=== PATIENT | male | born 1980 | race American Indian/Alaskan Native ===

== ENCOUNTER 2017-09-20 13:51 | Emergency (ER) | payer SELFPAY ==
[2017-09-20 14:15] VITALS: BMI 38.6
[2017-09-20] MEDS ORDERED: Sodium Chloride 0.9% 1,000 ML IV ONE (14:46)
--- NOTE | 2017-09-20 14:49 | C.PDOC ---
History Of Present Illness 37 y/o male presents to the ED c/o low abdominal pain for weeks . The patient notes having blood in his urine. The patient has been taking Motrin for relief of back and abdominal pain.The patient denies fever, nausea, vomiting, headaches , and dizziness. Time Seen by Provider: 09/20/17 14:23 Chief Complaint (Nursing): Abdominal Pain History Per: Patient History/Exam Limitations: no limitations Onset/Duration Of Symptoms: Days Current Symptoms Are (Timing): Still Present Severity: Mild Associated Symptoms: denies: Fever, Chills, Nausea, Vomiting, Diarrhea, Loss Of Appetite Recent travel outside of the [place]: No Additional History Per: Patient Past Medical History Reviewed: Historical Data, Nursing Documentation, Vital Signs Vital Signs: Last Vital Signs Temp 97.7 F 09/20/17 14:14 Pulse 60 09/20/17 14:14 Resp 20 09/20/17 14:14 BP 127/76 09/20/17 14:14 Pulse Ox 100 09/20/17 16:35 - Medical History PMH: Bronchitis, Pneumonia Surgical History: No Surg Hx Family History: States: No Known Family Hx - Social History Hx Tobacco Use: Yes Hx Alcohol Use: Yes Hx Substance Use: Yes - Immunization History Hx Tetanus Toxoid Vaccination: Yes Hx Influenza Vaccination: No Hx Pneumococcal Vaccination: No Review Of Systems Except As Marked, All Systems Reviewed And Found Negative. Constitutional: Negative for: Fever, Chills, Sweats Cardiovascular: Negative for: Chest Pain Respiratory: Negative for: Cough, Shortness of Breath Gastrointestinal: Positive for: Abdominal Pain (for weeks ). Negative for: Nausea, Vomiting, Diarrhea, Constipation Genitourinary: Positive for: Dysuria, Hematuria. Negative for: Penile Discharge , Penile Pain Skin: Negative for: Rash Physical Exam - Physical Exam Appears: Non-toxic, Other (alert and awake) Skin: Warm, Dry Head: Atraumatic, Normacephalic Eye(s): bilateral: PERRL Oral Mucosa: Moist Neck: Normal Chest: Symmetrical Cardiovascular: Rhythm Regular Respiratory: Normal Breath Sounds, No Rales, No Rhonchi, No Wheezing Gastrointestinal/Abdominal: Soft, Tenderness (suprapubic ), No Guarding, No Rebound Back: No CVA Tenderness Extremity: Normal ROM, Capillary Refill (2<sec.) Neurological/Psych: Oriented x3 Gait: Steady ED Course And Treatment - Laboratory Results Result Diagrams: 09/20/17 14:51 09/20/17 14:51 Lab Interpretation: No Acute Changes O2 Sat by Pulse Oximetry: 100 Pulse Ox Interpretation: Normal - CT Scan/US No standard instances Other Rad Studies (CT/US): Read By Radiologist, Radiology Report Reviewed CT/US Interpretation: FINDINGS: LOWER THORAX: Unremarkable. LIVER: Unremarkable. No gross lesion or ductal dilatation. GALLBLADDER AND BILE DUCTS : Unremarkable. PANCREAS: Unremarkable. No gross lesion or ductal dilatation. SPLEEN: Unremarkable. ADRENALS: Unremarkable. No mass. KIDNEYS AND URETERS: Unremarkable. No hydronephrosis. No solid mass. VASCULATURE: Unremarkable. No aortic aneurysm. BOWEL: The stomach is distended with retained food moderately. No obstruction. No gross mural thickening. Minimal sigmoid diverticular changes are identified without diverticulitis. Moderate fecal loading is seen throughout the large bowel. APPENDIX: Unremarkable. Normal appendix. PERITONEUM: Unremarkable. No free fluid. No free air. LYMPH NODES: Unremarkable. No enlarged lymph nodes. BLADDER: Unremarkable. REPRODUCTIVE: Unremarkable. BONES: No acute fracture. OTHER FINDINGS: None. IMPRESSION: Limited imaging the abdomen due lack of contrast agents. No definitive acute abdominal or pelvic findings. If symptoms persist or worsen follow-up oral intravenous contrast enhanced abdomen and pelvis CT is recommended strongly. Progress Note: Treated with IVF NSS and tordal with relief. On re-evaluation abdomen soft treated with rocephin and zithromax for possible STD. Urine sent to lab for STD and culture. treated with macrobid PO. On re-evaluation abdomen soft non-tender. Discharged in stable condition Reassessment Condition: Improved Medical Decision Making Medical Decision Making: Ct scan, IV fluids , UA , Blood work, and Toradol was administered. Disposition Counseled Patient/Family Regarding: Studies Performed, Diagnosis, Need For Followup, Rx Given - Disposition Referrals: [facility] [Outside] [facility] [Outside] Disposition: HOME/ ROUTINE Disposition Time: 16:35 Condition: STABLE Additional Instructions: follow up with clinic for further evaluation Return to ED if any increase symptoms Prescriptions: Nitrofurantoin Macrocrystals [Macrobid] 1 cap PO BID #14 cap Instructions: Urinary Tract Infection in Men (DC), Dysuria (ED) Forms: [employer] ([employer]) - POA Present On Arrival: None - Clinical Impression Clinical Impression: Abdominal pain, Urinary tract infection - PA / TAX RECORD CLERK / Resident Statement MD/DO has examined the patient and agrees with the treatment plan. - Scribe Statement The provider has reviewed the documentation as recorded by the Dillanibmary grace Solorzano All medical record entries made by the Jackie were at my direction and personally dictated by me. I have reviewed the chart and agree that the record accurately reflects my personal performance of the history, physical exam, medical decision making, and the department course for this patient. I have also personally directed, reviewed, and agree with the discharge instructions and disposition.
[2017-09-20] MEDS ORDERED: Sodium Chloride 0.9% 1,000 ML ONE (14:54)
[2017-09-20 14:58] LABS: BASO # 0.1 K/uL (0.0-0.2); BASO % 0.7 % (0.0-2.0); EOS # 0.1 K/uL (0.0-0.7); HEMATOCRIT 38.9 % (35.0-51.0); LYMPH % 31.3 % (20.0-40.0); MEAN CELL VOLUME 86.1 fL (80.0-94.0); MEAN CORPUSCULAR HEMOGLOBIN 28.7 pg (27.0-31.0); MEAN CORPUSCULAR HGB CONC 33.3 g/dL (33.0-37.0); MONO # 0.7 K/uL (0.0-0.8); MONO % 6.8 % (0.0-10.0); RED CELL DISTRIBUTION WIDTH 13.3 % (11.5-14.5); WHITE BLOOD COUNT 9.6 K/uL (4.8-10.8)
[2017-09-20 15:05] LABS: ALB/GLOB RATIO 1.3 (1.0-2.1); ALKALINE PHOSPHATASE 80 U/L (38-126); ALT/SGPT 41 U/L (21-72); AST/SGOT 45 U/L (17-59); BILIRUBIN,TOTAL 0.9 mg/dL (0.2-1.3); BLOOD UREA NITROGEN 12 mg/dL (9-20); CALCIUM 8.4 mg/dl (8.6-10.4); CARBON DIOXIDE 28 mmol/L (22-30); CHLORIDE 104 mmol/L (98-107); GFR AFRICAN-AMERICAN > 60; GLUCOSE,RANDOM 90 mg/dL (75-110); POTASSIUM 3.7 mmol/L (3.6-5.2); SODIUM 141 mmol/L (132-148); TOTAL PROTEIN 7.5 g/dL (6.3-8.3)
[2017-09-20 15:36] LABS: RBC URINE 4 /hpf (0-3); URINE BACTERIA OCC (<OCC); URINE BILIRUBIN NEGATIVE (NEGATIVE); URINE BLOOD 1+ (NEGATIVE); URINE COLOR Yellow (YELLOW); URINE GLUCOSE (UA) NORMAL (Normal); URINE KETONE NEGATIVE (NEGATIVE); URINE PROTEIN NEGATIVE (NEGATIVE); URINE UROBILINOGEN NORMAL mg/dL (0.2-1.0); WBC URINE 11 /hpf (0-5)
[2017-09-20 15:43] LABS: URINE LEUKOCYTE ESTERASE 1+ Leu/uL (Negative)
--- NOTE | 2017-09-20 16:08 | CT ---
PROCEDURE: CT Abdomen and Pelvis without intravenous contrast HISTORY: Pain COMPARISON: None. TECHNIQUE: Helical CT of the abdomen and pelvis was performed without oral or intravenous contrast as per referring physician request.. Contrast Dose: None Radiation dose: Total exam DLP = 1301.00 mGy-cm. This CT exam was performed using one or more of the following dose reduction techniques: Automated exposure control, adjustment of the mA and/or kV according to patient size, and/or use of iterative reconstruction technique. FINDINGS: LOWER THORAX: Unremarkable. LIVER: Unremarkable. No gross lesion or ductal dilatation. GALLBLADDER AND BILE DUCTS: Unremarkable. PANCREAS: Unremarkable. No gross lesion or ductal dilatation. SPLEEN: Unremarkable. ADRENALS: Unremarkable. No mass. KIDNEYS AND URETERS: Unremarkable. No hydronephrosis. No solid mass. VASCULATURE: Unremarkable. No aortic aneurysm. BOWEL: The stomach is distended with retained food moderately. No obstruction. No gross mural thickening. Minimal sigmoid diverticular changes are identified without diverticulitis. Moderate fecal loading is seen throughout the large bowel. APPENDIX: Unremarkable. Normal appendix. PERITONEUM: Unremarkable. No free fluid. No free air. LYMPH NODES: Unremarkable. No enlarged lymph nodes. BLADDER: Unremarkable. REPRODUCTIVE: Unremarkable. BONES: No acute fracture. OTHER FINDINGS: None. IMPRESSION: Limited imaging the abdomen due lack of contrast agents. No definitive acute abdominal or pelvic findings. If symptoms persist or worsen follow-up oral intravenous contrast enhanced abdomen and pelvis CT is recommended strongly.
[2017-09-20] MEDS ORDERED: cefTRIAXone (Rocephin) 250 mg Inj IM STA (16:25)
[2017-09-20 17:15] VITALS: BP 149/79; PULSE 59; RESP 18; TEMP 98.2; O2SAT 99
== END 2017-09-20 17:15 | disposition home or self-care (01) ==
LOC: C.ER 13:51
DX: N39.0 Urinary tract infection, site not specified (principal); R10.30 Lower abdominal pain, unspecified; Z87.891 Personal history of nicotine dependence
CPT/HCPCS: 74176; 80053; 81001; 85025; 87086; 87491; 87591; 96361; 96372; 96374; 99285; J0696; J1885; J7040

== ENCOUNTER 2018-06-25 19:39 | Inpatient (IN) | payer SELFPAY ==
[2018-06-25 19:39] VITALS: BMI 38.6
[2018-06-25 20:11] VITALS: TEMP 98.6
--- NOTE | 2018-06-25 20:15 | C.PDOC ---
History Of Present Illness 38 year old male presents to the ER with a complaint of left sided chest pain for the past 3 days that has worsened today associated with diaphoresis. Patient describes the pain as a sharp shooting pain that radiates down the left arm and states he feels a tingling sensation to his left hand. He reports taking tramadol yesterday with no relief and took nothing for the past today. Patient admits to recreational marijuana use but denies other substance abuse. Denies SOB, nausea, vomiting, fever, or chills. Time Seen by Provider: 06/25/18 20:15 Chief Complaint (Nursing): Chest Pain History Per: Patient History/Exam Limitations: no limitations Onset/Duration Of Symptoms: Days Current Symptoms Are (Timing): Still Present Quality: Sharp, Other (Shooting) Associated Symptoms: Diaphoresis Modifying Factors: None Exacerbating Factors: None Alleviating Factors: None Recent travel outside of the [place]: No Past Medical History Reviewed: Historical Data, Nursing Documentation, Vital Signs Vital Signs: Last Vital Signs Temp 98.6 F 06/25/18 20:08 Pulse 78 06/26/18 00:15 Resp 18 06/26/18 00:15 BP 126/84 06/26/18 00:15 Pulse Ox 98 06/26/18 00:15 - Medical History PMH: Bronchitis, Pneumonia Family History: States: [place] - Social History Hx Tobacco Use: Yes Hx Alcohol Use: Yes Hx Substance Use: Yes - Immunization History Hx Tetanus Toxoid Vaccination: Yes Hx Influenza Vaccination: No Hx Pneumococcal Vaccination: No Review Of Systems Constitutional: Positive for: Sweats. Negative for: Fever, Chills Cardiovascular: Positive for: Chest Pain. Negative for: Palpitations Respiratory: Negative for: Cough, Shortness of Breath Gastrointestinal: Negative for: Nausea, Vomiting Skin: Negative for: Rash Neurological: Positive for: Other (Tingling sensation to left hand) Physical Exam - Physical Exam Appears: Non-toxic Skin: Normal Color, Warm, Dry, No Rash Head: Atraumatic, Normacephalic Eye(s): bilateral: Normal Inspection Oral Mucosa: Moist Chest: Symmetrical, No Tenderness Cardiovascular: Rhythm Regular Respiratory: Normal Breath Sounds, No Rales, No Rhonchi, No Wheezing Gastrointestinal/Abdominal: Soft, No Tenderness Back: No CVA Tenderness Extremity: Normal ROM (x4) Neurological/Psych: Oriented x3, Normal Speech, Normal Motor, Normal Sensation ED Course And Treatment - Laboratory Results Result Diagrams: 06/25/18 20:26 06/25/18 20:26 O2 Sat by Pulse Oximetry: 99 (Room air) Pulse Ox Interpretation: Normal Medical Decision Making Medical Decision Making: EKG, blood work, and CXR ordered. Pepcid, maalox, and motrin administered. Heart score 4: Story: 2 RF: 1 EK Trop: 0 age: 0 will plan for obs Endorsed to Dr. Ruiz: accepted Seen by medicine team bedside: likely cervical radiculopathy vs strain. Pt notes that he wants to go home. I informed pt of non-complete workup for chest pain with risks including NH, UA, and other deadly diagnoses. Pt notes he understand the risks of and disability and wants to go home. Given pt is of sound mind and with a normal affect and neuro will AMA pt home. Disposition - Disposition Disposition: AGAINST MEDICAL ADVICE Disposition Time: 10:38 Condition: GOOD - Clinical Impression Clinical Impression: Chest pain, Cervical strain - Scribe Statement The provider has reviewed the documentation as recorded by the Scribmary grace Mcdowell All medical record entries made by the Scribe were at my direction and personally dictated by me. I have reviewed the chart and agree that the record accurately reflects my personal performance of the history, physical exam, medical decision making, and the department course for this patient. I have also personally directed, reviewed, and agree with the discharge instructions and disposition.
[2018-06-25 20:31] LABS: BASO % 0.4 % (0.0-2.0); EOS # 0.2 K/uL (0.0-0.7); EOS % 1.6 % (0.0-4.0); LYMPH # 3.4 K/uL (1.0-4.3); LYMPH % 31.7 % (20.0-40.0); MEAN CELL VOLUME 87.9 fL (80.0-94.0); MEAN CORPUSCULAR HEMOGLOBIN 29.2 pg (27.0-31.0); MEAN CORPUSCULAR HGB CONC 33.2 g/dL (33.0-37.0); MEAN PLATELET VOLUME 8.5 fL (7.2-11.7); MONO # 0.7 K/uL (0.0-0.8); MONO % 6.3 % (0.0-10.0); NEUT # 6.4 K/uL (1.8-7.0); NRBC % 0.1 % (0.0-2.0); RBC 4.45 Mil/uL (4.40-5.90); RED CELL DISTRIBUTION WIDTH 13.6 % (11.5-14.5); WHITE BLOOD COUNT 10.7 K/uL (4.8-10.8)
[2018-06-25 20:40] LABS: INR 1.1; PROTHROMBIN TIME 11.5 SECONDS (9.7-12.2)
[2018-06-25 20:44] LABS: ALB/GLOB RATIO 1.3 (1.0-2.1); ALT/SGPT 40 U/L (21-72); AST/SGOT 36 U/L (17-59); BLOOD UREA NITROGEN 12 mg/dL (9-20); CALCIUM 8.9 mg/dl (8.6-10.4); GFR NON-AFRICAN AMERICAN > 60
[2018-06-25] MEDS ORDERED: Aluminum Hydroxide/Magnesium Hydroxide Susp (30 mL) PO ONE (21:15)
[2018-06-25] MEDS ORDERED: Alum-Mag Hydrox-Simethicone Susp (30 mL) ONE (21:21)
[2018-06-26 00:21] VITALS: BP 126/84; PULSE 78; RESP 18
[2018-06-26 01:22] VITALS: O2SAT 99
--- NOTE | 2018-06-26 08:50 | RAD ---
Date of service: 06/25/2018 HISTORY: Chest pain COMPARISON: 10/16/2015. FINDINGS: LUNGS: The lungs are well inflated and clear. PLEURA: No significant pleural effusion identified, no pneumothorax apparent. CARDIOVASCULAR: Normal. OSSEOUS STRUCTURES: No significant abnormalities. VISUALIZED UPPER ABDOMEN: Normal. OTHER FINDINGS: None. IMPRESSION: No active pulmonary disease.
--- NOTE | 2018-06-26 11:03 | CARD ---
APPROVED REPORT Date of service: 06/25/2018 EKG Measurement Heart [id number] CO 156P40 [id number] <Conclusion> Sinus bradycardia Incomplete right bundle branch block Borderline ECG
== END 2018-06-26 00:15 | disposition left against medical advice (07) | DRG 313 ==
LOC: C.ER 19:39 → SUPCPDRO 19:39 → C.9E 22:44 → C.5S 23:19
PROVIDERS: ADMIT Internal Medicine; ATTEND Internal Medicine
DX: R07.9 Chest pain, unspecified (principal); F12.90 Cannabis use, unspecified, uncomplicated; S16.1XXA Strain of muscle, fascia and tendon at neck level, initial encounter; X58.XXXA Exposure to other specified factors, initial encounter; Z87.891 Personal history of nicotine dependence

== ENCOUNTER 2019-01-29 11:07 | Emergency (ER) | payer OTHER ==
[2019-01-29 11:13] VITALS: BMI 36.6
[2019-01-29 11:19] VITALS: BP 122/74; PULSE 60; RESP 18; TEMP 97.9; O2SAT 100
[2019-01-29] MEDS ORDERED: Fluorescein 1 mg Ophthalmic Strip ONE (12:33)
[2019-01-29] MEDS ORDERED: Tetracaine 0.5% Ophth (OR ONLY) ONE (12:33)
--- NOTE | 2019-01-29 12:35 | C.PDOC ---
History Of Present Illness 38-year-old male presents to the ED for evaluation of foreign body sensation in left eye since this morning. Patient states he was in the shower when he felt a sudden onset of sandpaper-like sensation in his left eye. Patient states, "I thought it was an eyelash," and tried to get it out but was unable to. Patient denies blurry vision, contact lens use, eye swelling or pain with eye movement. Time Seen by Provider: 01/29/19 12:09 Chief Complaint (Nursing): Eye Problem History Per: Patient History/Exam Limitations: no limitations Onset/Duration Of Symptoms: Hrs Current Symptoms Are (Timing): Still Present Injury To Eye?: No Associated Symptoms: FB Sensation. denies: Pain, Decreased Vision, Swelling Additional History Per: Patient Past Medical History Reviewed: Historical Data, Nursing Documentation, Vital Signs Vital Signs: Last Vital Signs Temp 97.9 F 01/29/19 11:13 Pulse 60 01/29/19 11:13 Resp 18 01/29/19 11:13 BP 122/74 01/29/19 11:13 Pulse Ox 100 01/29/19 11:13 - Medical History PMH: Bronchitis, Pneumonia Surgical History: No Surg Hx Family History: States: [place] - Social History Hx Tobacco Use: Yes Hx Alcohol Use: Yes Hx Substance Use: No ("marijuana isn't a drug" as per patient) - Immunization History Hx Tetanus Toxoid Vaccination: Yes Hx Influenza Vaccination: No Hx Pneumococcal Vaccination: Yes Review Of Systems Constitutional: Negative for: Weakness Eyes: Positive for: Other (left eye foreign body sensation ). Negative for: Pain, Vision Change, Redness Skin: Negative for: Rash, Lesions, Jaundice, Bruising Neurological: Negative for: Headache, Dizziness Physical Exam - Physical Exam Appears: Well, Non-toxic, No Acute Distress Skin: Normal Color, Warm, No Rash, No Ecchymosis Head: Normacephalic, No Other (periorbital edema or erythema ) Eye(s): bilateral: PERRL, EOMI (no pain or limitation on extraocular movement B/L), right: Normal Inspection, left: Other (mild conjunctival injection, positive fluorescein uptake at 6:00 position. No corneal foreign body visualized. ) Ear(s): Bilateral: Normal Nose: No Flaring, No Discharge Oral Mucosa: Moist, No Drooling Tongue: Normal Appearing Lips: Normal Appearing Neurological/Psych: Oriented x3, Normal Speech ED Course And Treatment O2 Sat by Pulse Oximetry: 100 (on RA) Pulse Ox Interpretation: Normal Progress Note: On re-eval, pt is afebrile, hemodynamicaly stable. Left eye: small fluoresceine uptake noted. no pain or limitation on extraocular movemnet. No evidenc eof corneal FB. NO periorbital edema or erythema. VA review and appears noraml. Eye patch applied. Pt advised adn ref. to f/u with opht in 1-2 days for re-eavl. Disposition Counseled Patient/Family Regarding: Diagnosis, Need For Followup, Rx Given - Disposition Referrals: Allan Arora [Staff Provider] - Disposition: HOME/ ROUTINE Disposition Time: 12:41 Condition: STABLE Additional Instructions: Eye patch for 1 week take medication as prescribed Follow up with ophtalmology in 2-3 days for re-evaluation. Return if any worsening or new changes. Prescriptions: Neomycin/Polymyxin/Dexamethaso [Dexamethasone/Neomycin/Polymyxin 5 Ml] 2 drop LEFTEYE Q4 #1 bottle Instructions: Corneal Abrasion (DC) Forms: [employer] ([place]), Work Excuse - Clinical Impression Clinical Impression: Corneal abrasion - PA / CRICKET COACH / Resident Statement MD/DO has reviewed & agrees with the documentation as recorded. - Scribe Statement The provider has reviewed the documentation as recorded by the Scribe (Rajani Garsia) All medical record entries made by the Scribe were at my direction and personally dictated by me. I have reviewed the chart and agree that the record accurately reflects my personal performance of the history, physical exam, medical decision making, and the department course for this patient. I have also personally directed, reviewed, and agree with the discharge instructions and disposition.
== END 2019-01-29 13:00 | disposition home or self-care (01) ==
LOC: C.ER 11:07
DX: S05.02XA Injury of conjunctiva and corneal abrasion without foreign body, left eye, initial encounter (principal); X58.XXXA Exposure to other specified factors, initial encounter; Y93.E1 Activity, personal bathing and showering